=== PATIENT | female | born 1975 | race Caucasian/White ===

== ENCOUNTER 2017-07-25 12:20 | Outpatient (CLI) | payer MEDICAID, SELFPAY | END 2017-07-25 12:21 | disposition home or self-care (01) | LOC: ULT 12:20 | PROVIDERS: ATTEND Nurse Practitioner Family | DX: Z53.9 Procedure and treatment not carried out, unspecified reason (principal); N64.4 Mastodynia ==

== ENCOUNTER 2017-09-11 08:00 | Outpatient (CLI) | payer MEDICAID | END 2017-09-11 08:01 | disposition home or self-care (01) | LOC: BICMAMMO 08:00 | PROVIDERS: ATTEND Nurse Practitioner Family | DX: Z12.31 Encounter for screening mammogram for malignant neoplasm of breast (principal) | CPT/HCPCS: 77066; G0279 ==

== ENCOUNTER 2018-07-03 13:48 | Emergency (ER) | payer MEDICAID, SELFPAY ==
[~2018-07-03 13:48] MED LIST: ISOVUE-370 76%-LOCM 1 ML ONE
[2018-07-03] MEDS ORDERED: Ondansetron PF 4 MG/2 ML Vial ONE (14:38)
[2018-07-03] MEDS ORDERED: Morphine 4 MG/ML VIAL ONE ×2 (14:59→16:41)
[2018-07-03 15:04] LABS: #Basophils 0.1 thou/uL (0.0-0.2); #Eosinphils 0.1 thou/uL (0.0-0.7); #Lymphocytes 1.8 thou/uL (1.20-3.40); #Monocytes 0.5 thou/uL (0.11-0.59); #Neutrophils 8.3 thou/uL (1.40-6.50); %Basophils 0.5 % (0.0-1.0); %Eosinophils 0.7 % (0.0-10.0); %Lymphocytes 16.8 % (21.0-51.0); %Monocytes 4.9 % (0.0-10.0); %Neutrophils 77.1 % (42.0-75.0); Hemoglobin 14.8 g/dL (12.0-16.0); Mean Corpuscular HGB CONC 32.6 g/dL (32.0-36.0); Mean Corpuscular Hemoglobin 30.7 pg (27.0-31.0); Mean Corpuscular Volume 94.3 fL (78.0-98.0); Mean Platelet Volume 8.2 fL (7.4-10.4); Platelet Count 222 thou/uL (130-400); RBC Distribution Width 11.8 % (11.5-14.5); Red Blood Cell (RBC) Count 4.81 mill/uL (4.20-5.40); White Blood Cell (WBC) Count 10.8 thou/uL (4.8-10.8)
[2018-07-03 15:24] LABS: ALT (SGPT) 25 U/L (8-55); AST (SGOT) 24 U/L (5-34); Albumin 3.8 g/dL (3.5-5.0); Alkaline Phosphatase 81 U/L (40-150); Anion Gap 10 mmol/L (10-20); BUN (Urea Nitrogen) 9 mg/dL (7.0-18.7); Bilirubin, Total 0.6 mg/dL (0.2-1.2); Calc. Creatinine Clearance 0 mL/min (70-130); Carbon Dioxide 22 mmol/L (22-29); Chloride 103 mmol/L (98-107); Estimated GFR-MDRD 86; Globulin 3.9 g/dL (2.4-3.5); Glucose 103 mg/dL (70-105); Lipase 21 U/L (8-78); Potassium 4.1 mmol/L (3.5-5.1); Protein, Total 7.7 g/dL (6.0-8.3); Sodium 131 mmol/L (136-145)
[2018-07-03 15:25] LABS: Bilirubin Negative (Negative); Blood, Urine Negative (Negative); Clarity CLEAR (Clear); Glucose, Urine (Dipstick) Negative (Negative); Leukocyte Negative (Negative); Nitrite Negative (Negative); Protein, Urine (Dipstick) Negative (Neg-Trace); Specific Gravity, Urine 1.009 (1.002-1.036); Urobilinogen 0.2 mg/dL (0.2-1.0); pH, Urine 6.5 (5.0-9.0)
[2018-07-03] MEDS ORDERED: Ketorolac Tromethamine 30 MG/ML VIAL ONE (16:20)
--- NOTE | 2018-07-03 16:31 | CT ---
ABDOMEN AND PELVIC CT SCAN WITHOUT IV CONTRAST: Date: 07/03/18 HISTORY: 43-year-old female with history of body aches, kidneys hurt, throwing up blood clots this morning aft er waking up. FINDINGS: The lung bases demonstrate some linear parenchymal changes in both lower lobes, evidence for mild sub segmental atelectasis versus chronic change. The liver, gallbladder, pancreas, spleen, and adrenal gl ands are unremarkable. No evidence for renal calculus or acute obstruction. Normal appearing appen alexandro. In the right adnexa, there is an approximately 3.4 x 5.0 cm diameter what appears to be a septated cy st or cystic mass. The uterus appears unremarkable. No free intraperitoneal fluid. There is scattered solid fecal material in the colon, but no evidence for an abnormally distended fecal-filled rectum. IMPRESSION: No significant acute process in the abdomen or pelvis. Right ovarian/adnexal septated appearing cyst or cystic mass. Nonemergent follow-up pelvic ultrasound might be considered for further assessment. L inear stranding in both lung bases, possibly subsegmental atelectasis or chronic change. POS: [facility]
[2018-07-03 17:17] LABS: BHCG - Serum Negative (NEGATIVE); Pregs Control Background? CLEAR/WHITE (CLR/WHITE); Pregs Control Bar Appear? YES (CONTROL BAR)
--- NOTE | 2018-07-03 19:38 | ULT ---
PELVIC ULTRASOUND: 07/03/18 COMPARISON: CT abdomen/pelvis 07/03/18. HISTORY: Cystic mass. TECHNIQUE: Multiplanar moreland scale and color doppler images were obtained in a transabdominal and transvaginal pe lvic ultrasound. Spectral analysis of the doppler waveforms of the ovaries were performed. FINDINGS: The uterus is normal in size and appearance without focal abnormality. Endometrial stripe is upper li mits of normal in thickness measuring 11 mm. A Nabothian cyst is seen in the cervix. A small amount of free fluid is seen in the pelvis. Both ovaries demonstrate normal internal flow. Cy st/follicles are seen in both ovaries. The largest is seen on the right measuring 3.4 cm in size. The abnormality on CT may have represented two separate cysts/follicles in the right ovary. IMPRESSION: No significant pelvic abnormality. The abnormality on CT are likely physiologic follicles. POS: [facility]
== END 2018-07-03 18:33 | disposition home or self-care (01) ==
LOC: ERS 13:48
DX: N83.201 Unspecified ovarian cyst, right side (principal); B34.9 Viral infection, unspecified; E78.5 Hyperlipidemia, unspecified; F31.9 Bipolar disorder, unspecified; F41.9 Anxiety disorder, unspecified; F43.10 Post-traumatic stress disorder, unspecified; F17.210 Nicotine dependence, cigarettes, uncomplicated; Z79.899 Other long term (current) drug therapy; Z71.6 Tobacco abuse counseling
CPT/HCPCS: 74177; 76856; 80053; 81003; 82274; 83690; 84703; 85025; 87804; 96361; 96374; 96375; 96376; 99406; J1885; J2270; J2405

== ENCOUNTER 2018-10-15 11:34 | Emergency (ER) | payer SELFPAY ==
[2018-10-15 12:17] LABS: #Basophils 0.1 thou/uL (0.0-0.2); #Eosinphils 0.1 thou/uL (0.0-0.7); #Lymphocytes 2.4 thou/uL (1.20-3.40); #Monocytes 0.5 thou/uL (0.11-0.59); #Neutrophils 4.6 thou/uL (1.40-6.50); %Basophils 0.8 % (0.0-1.0); %Eosinophils 1.4 % (0.0-10.0); %Lymphocytes 31.1 % (21.0-51.0); %Monocytes 6.9 % (0.0-10.0); %Neutrophils 59.8 % (42.0-75.0); Hemoglobin 15.4 g/dL (12.0-16.0); Mean Corpuscular Hemoglobin 31.3 pg (27.0-31.0); Mean Corpuscular Volume 94.8 fL (78.0-98.0); Mean Platelet Volume 8.9 fL (7.4-10.4); Platelet Count 225 thou/uL (130-400); RBC Distribution Width 12.3 % (11.5-14.5); White Blood Cell (WBC) Count 7.7 thou/uL (4.8-10.8)
[2018-10-15 12:53] LABS: Bilirubin Small (Negative); Blood, Urine Negative (Negative); Clarity CLOUDY (Clear); Glucose, Urine (Dipstick) Negative (Negative); Leukocyte Trace (Negative); Nitrite Negative (Negative); Protein, Urine (Dipstick) 30 mg/dL (Neg-Trace); Specific Gravity, Urine 1.023 (1.002-1.036); pH, Urine 7.5 (5.0-9.0)
[2018-10-15 12:53] LABS: ALT (SGPT) 14 U/L (8-55); AST (SGOT) 13 U/L (5-34); Albumin 4.1 g/dL (3.5-5.0); Alkaline Phosphatase 86 U/L (40-150); Anion Gap 12 mmol/L (10-20); BUN (Urea Nitrogen) 11 mg/dL (7.0-18.7); Bilirubin, Total 0.6 mg/dL (0.2-1.2); Calc. Creatinine Clearance 0 mL/min (70-130); Calcium 10.3 mg/dL (7.8-10.44); Carbon Dioxide 28 mmol/L (22-29); Chloride 104 mmol/L (98-107); Estimated GFR-MDRD 75; Globulin 3.9 g/dL (2.4-3.5); Glucose 67 mg/dL (70-105); Lipase 23 U/L (8-78); Potassium 3.7 mmol/L (3.5-5.1); Sodium 140 mmol/L (136-145)
[2018-10-15 12:55] LABS: Hyaline Casts/LPF 4-6 HYALINE CAST LPF (0-3 Hyaline); Pathc Cast-AUWi Flag 0.58 (0-2.49); WBC/HPF 0-3 HPF (0-3)
[2018-10-15 13:24] LABS: RBC/HPF 0-3 HPF (0-3)
[2018-10-15 13:25] LABS: Bacteria/HPF Rare-Few HPF (None Seen); Crystals/HPF 1+ AMORPH PHOS HPF (Negative)
[2018-10-15] MEDS ORDERED: Ondansetron ODT 4 MG TAB ONE (15:14)
== END 2018-10-15 15:17 | disposition home or self-care (01) ==
LOC: ERS 11:34
DX: R11.2 Nausea with vomiting, unspecified (principal); E78.5 Hyperlipidemia, unspecified; F41.9 Anxiety disorder, unspecified; F31.9 Bipolar disorder, unspecified; F43.10 Post-traumatic stress disorder, unspecified; F17.210 Nicotine dependence, cigarettes, uncomplicated; Z79.899 Other long term (current) drug therapy
CPT/HCPCS: 36416; 80053; 81003; 81015; 83690; 85025; 86677; 99284; Q0162

== ENCOUNTER 2019-05-23 23:01 | Inpatient (IN) | payer SELFPAY ==
[2019-05-23] MEDS ORDERED: Succinylcholine Chloride 20 MG/ML 10 ml SYRINGE FS ONE (23:05)
[2019-05-23] MEDS ORDERED: Midazolam HCl 5 mg/ml Vial ONE (23:20)
[2019-05-23 23:27] LABS: #Basophils 0.1 thou/uL (0.0-0.2); #Lymphocytes 1.5 thou/uL (1.20-3.40); #Monocytes 0.5 thou/uL (0.11-0.59); #Neutrophils 7.4 thou/uL (1.40-6.50); %Basophils 0.6 % (0.0-1.0); %Eosinophils 0.1 % (0.0-10.0); %Lymphocytes 16.3 % (21.0-51.0); %Neutrophils 78.1 % (42.0-75.0); Hemoglobin 15.1 g/dL (12.0-16.0); Mean Corpuscular HGB CONC 33.8 g/dL (32.0-36.0); Mean Corpuscular Volume 94.6 fL (78.0-98.0); Mean Platelet Volume 8.7 fL (7.4-10.4); Platelet Count 202 thou/uL (130-400); RBC Distribution Width 12.6 % (11.5-14.5); Red Blood Cell (RBC) Count 4.73 mill/uL (4.20-5.40); White Blood Cell (WBC) Count 9.5 thou/uL (4.8-10.8)
[2019-05-23] MEDS ORDERED: fentaNYL Citrate/PF 2,000 MCG in Sodium Chloride 0.9% 60 ML IV SCH (23:27)
[2019-05-23 23:28] LABS: Actual Bicarbonate (HCO3a) 19.5 mEq/L (22-28); Analyzer IN Cardio ER; Base Excess (BEa) -6.9 mEq/L (-2.0 to +3.0); CO2 Tension 42.1 mmHg (35.0-45.0); Calcium, Ionized 1.19 mmol/L (1.12-1.30); Carboxyhemoglobin (COHb) 2.8 gm% (0.0-3.0); Hemoglobin (Hb) 14.7 g/dL (12.0-16.0); O2 Tension (PaO2) 387.4 mmHg (80.0-100.0); Potassium - ABG Lab 4.19 mmol/L (3.70-5.30); pH, Arterial 7.28 (7.35-7.45)
[2019-05-23 23:30] LABS: BHCG - Serum Negative (NEGATIVE); Pregs Control Background? CLEAR/WHITE (CLR/WHITE); Pregs Control Bar Appear? YES (CONTROL BAR)
--- NOTE | 2019-05-23 23:31 | RAD ---
EXAM: Single view of the chest HISTORY: Drug overdose COMPARISON: 09/06/2017 FINDINGS: Single view of the chest shows a normal sized cardiomediastinal silhouette. An endotrachea l tube is seen with its tip at the lower border of the clavicles. An NG tube is seen in the stomach. Atelectasis is seen in the mid left lung extending from the hilum. There is no evidence of consolidation, mass, or pleural effusion. The bones are unremarkable. IMPRESSION: Appropriate position of lines and tubes
[2019-05-23 23:33] LABS: Bilirubin Negative (Negative); Blood, Urine Negative (Negative); Clarity Turbid (Clear); Glucose, Urine (Dipstick) Normal (Negative); Leukocyte Negative Leu/uL (Negative); Mucous/LPF 4+ LPF (<2+); Nitrite Negative (Negative); Protein, Urine (Dipstick) 50 mg/dL (Neg-Trace); RBC/HPF 0-3 HPF (0-3); Squamous Epithelial 0-3 HPF (0-3); Urobilinogen Normal mg/dL (Less than 2); WBC/HPF 0-3 HPF (0-3)
[2019-05-23 23:35] LABS: Bacteria/HPF 1+ HPF (None Seen)
[2019-05-23 23:36] LABS: Calcium Oxalate Crystals Rare HPF (None Seen)
[2019-05-23 23:36] LABS: ALV-art Gradient 272.975 (0-20); Puncture Site RRA
[2019-05-23 23:38] LABS: Amphetamine Not Detected (NotDetected); Barbiturates Screen Not Detected (NotDetected); Benzodiazepine Screen Detected (NotDetected); Cocaine Metabolite Screen Detected (NotDetected); Medtox Control Line Valid? VALID (VALID); Medtox Reader # READER 4; Methadone Not Detected (NotDetected); Methamphetamine Detected (NotDetected); Opiate Screen Not Detected (NotDetected); Oxycodone Screen Not Detected (NotDetected); Phencyclidine (PCP) Not Detected (NotDetected); THC/Cannabinoid Screen Detected (NotDetected); Tricyclic Screen Not Detected (NotDetected)
[2019-05-23 23:51] LABS: Acetaminophen Less than 6.0 mcg/mL (10.0-30.0); Alcohol Less than 10 mg/dL (Less than 10); Salicylate Less than 8.0 mg/dL (15.0-30.0)
[2019-05-24 00:06] LABS: ALT (SGPT) 22 U/L (8-55); AST (SGOT) 19 U/L (5-34); Albumin 4.4 g/dL (3.5-5.0); Alkaline Phosphatase 80 U/L (40-150); Anion Gap 15 mmol/L (10-20); BUN (Urea Nitrogen) 14 mg/dL (7.0-18.7); Bilirubin, Total 0.4 mg/dL (0.2-1.2); Calc. Creatinine Clearance 0 mL/min (70-130); Calcium 9.5 mg/dL (7.8-10.44); Carbon Dioxide 22 mmol/L (22-29); Chloride 107 mmol/L (98-107); Estimated GFR-MDRD 78; Globulin 3.7 g/dL (2.4-3.5); Glucose 114 mg/dL (70-105); Potassium 4.1 mmol/L (3.5-5.1); Protein, Total 8.1 g/dL (6.0-8.3); Sodium 140 mmol/L (136-145)
[2019-05-24] MEDS ORDERED: Propofol 1,000 MG/100 ML VIAL IV ONE (01:44)
[2019-05-24 02:11] VITALS: BMI 38.7
[2019-05-24] MEDS ORDERED: Ondansetron ODT 4 MG TAB PO PRN (02:12)
[2019-05-24] MEDS ORDERED: Ondansetron PF 4 MG/2 ML Vial IVP PRN (02:12)
[2019-05-24] MEDS ORDERED: Acetaminophen 650 MG Suppository PR PRN (02:12)
[2019-05-24] MEDS ORDERED: Ventilator Sedation Protocol 1 EACH FS SCH (02:14)
[2019-05-24] MEDS ORDERED: Morphine 2 MG/ML SYRINGE SLOW IVP PRN (02:16)
[2019-05-24] MEDS ORDERED: Fentanyl BOLUS 250 ML IVPB PRN (02:16)
[2019-05-24] MEDS ORDERED: Propofol 1,000 MG/100 ML VIAL IV PRN (02:16)
[2019-05-24] MEDS ORDERED: DISCONTINUE PREVIOUS NARCOTIC PAIN MEDICATIONS AND BENZODIAZEPINES FS SCH (02:16)
[2019-05-24] MEDS ORDERED: Propofol BOLUS 1,000 MG/100 ML VIAL IV PRN (02:16)
[2019-05-24] MEDS ORDERED: fentaNYL Citrate/PF 2,000 MCG in Sodium Chloride 0.9% 60 ML IV SCH (02:16)
[2019-05-24] MEDS ORDERED: Lorazepam 2 MG/ML VIAL SLOW IVP PRN (02:16)
[2019-05-24 04:27] LABS: #Lymphocytes 2.5 thou/uL (1.20-3.40); #Monocytes 0.3 thou/uL (0.11-0.59); #Neutrophils 4.8 thou/uL (1.40-6.50); %Basophils 0.5 % (0.0-1.0); %Eosinophils 0.1 % (0.0-10.0); %Lymphocytes 32.9 % (21.0-51.0); %Monocytes 4.3 % (0.0-10.0); %Neutrophils 62.2 % (42.0-75.0); Hemoglobin 13.7 g/dL (12.0-16.0); Mean Corpuscular HGB CONC 33.9 g/dL (32.0-36.0); Mean Corpuscular Hemoglobin 32.1 pg (27.0-31.0); Mean Corpuscular Volume 94.5 fL (78.0-98.0); Mean Platelet Volume 8.6 fL (7.4-10.4); Platelet Count 195 thou/uL (130-400); RBC Distribution Width 12.5 % (11.5-14.5); Red Blood Cell (RBC) Count 4.26 mill/uL (4.20-5.40); White Blood Cell (WBC) Count 7.6 thou/uL (4.8-10.8)
[2019-05-24 04:43] LABS: Lactic Acid 1.6 mmol/L (0.5-2.2)
[2019-05-24 04:45] LABS: Anion Gap 13 mmol/L (10-20); BUN (Urea Nitrogen) 12 mg/dL (7.0-18.7); Calc. Creatinine Clearance 179 mL/min (70-130); Calcium 8.9 mg/dL (7.8-10.44); Carbon Dioxide 19 mmol/L (22-29); Chloride 111 mmol/L (98-107); Estimated GFR-MDRD Greater than 90; Glucose 100 mg/dL (70-105); Potassium 3.3 mmol/L (3.5-5.1); Sodium 140 mmol/L (136-145)
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
--- NOTE | 2019-05-24 07:54 | CT ---
PRELIMINARY REPORT/[facility]/EMERGENCY AFTER HOURS PROCEDURE: PROCEDURE INFORMATION: Exam: CT Head Without Contrast Exam date and time: 05/24/2019 12:06 AM Clinical history: 44 years old, female; Altered mental status/memory loss; Patient HX: Friends report to EMS that she started shaking and went unresponsive. TECHNIQUE: Imaging protocol: Computed tomography of the head without contrast. COMPARISON: No relevant prior studies available. FINDINGS: Brain: No acute findings. No hemorrhage. No significant white matter disease. No edema. Ventricles: No acute findings. No ventriculomegaly. Bones/joints: No acute fracture. Sinuses: Mild ethmoid sinus mucosal thickening. Adenoid hypertrophy. Mastoid air cells: No acute findings. No mastoid effusion. Soft tissues: No acute findings. IMPRESSION: No acute intracranial abnormality. Thank you for allowing us to participate in the care of your patient. Dictated and Authenticated by: Yusef Pal MD 05/24/2019 12:25 AM Central Time ([place] & [place]) FINAL REPORT EMERGENCY AFTER HOURS CT HEAD: Date: 05/23/19 IMPRESSION: No acute abnormality. I am in agreement with the preliminary report issued by Brian. POS: [facility]
[2019-05-24] MEDS ORDERED: DC Sedation Protocol FS ONE (08:29)
[2019-05-24] MEDS ORDERED: Potassium Chloride 40 MEQ in Sodium Chloride 0.9% 250 ML 250 ML IVPB SCH (08:45)
[2019-05-24] MEDS ORDERED: Magnesium Sulfate 4 GM in Sodium Chloride 0.9% 250 ML 250 ML IVPB SCH (08:45)
[2019-05-24] MEDS: Dextrose 5 %-0.45 % NaCl 1,000 ML IV SCH (09:39)
[2019-05-24] MEDS: Enoxaparin Sodium 40 MG/0.4 ML SYRINGE SC SCH (09:40)
--- NOTE | 2019-05-24 12:41 | PDOC.HOSPP ---
- Subjective Encounter Date: 05/24/19 Encounter Time: 12:39 Subjective: 44 y/o female with drug abuse history admitted with unresponsiveness requiring intubation for airway protection. Extubated earlier today. Has no memory of events leading to hospitalization. - Objective Vital Signs & Weight: Vital Signs (12 hours) Temp Pulse Resp BP Pulse Ox 05/24/19 12:00 98.0 F 97 05/24/19 08:32 89 14 99 05/24/19 08:00 98.7 F 18 95 05/24/19 06:36 56 L 106/68 05/24/19 06:00 18 05/24/19 04:00 97.6 F 18 05/24/19 02:00 97.6 F 18 05/24/19 01:40 97.8 F 58 L 16 99 Weight Weight 211 lb 6.773 oz Most Recent Monitor Data Heart Rate from ECG 76 NIBP 92/50 NIBP BP-Mean 64 Respiration from ECG 20 SpO2 97 I&O: 05/23/19 05/24/19 05/25/19 06:59 06:59 06:59 Intake Total 15.7 6 Output Total 185 100 Balance -169.3 -94 Result Diagrams: 05/25/19 05:56 05/25/19 05:56 Additional Labs: Accuchecks 05/23/19 23:59 POC Glucose 108 Hospitalist ROS - Medication Medications: Active Medications Generic Name Dose Route Start Last Admin Trade Name Freq PRN Reason Stop Dose Admin Enoxaparin Sodium 40 mg 05/24/19 09:00 05/24/19 09:40 Lovenox SC 40 mg 0900 LA NENA Administration Dextrose/Sodium Chloride 1,000 mls @ 75 mls/hr 05/24/19 08:45 05/24/19 09:39 D5 1/2 Ns IV 1,000 mls .[id number] LA NENA Administration - Exam General Appearance: awake alert Eye: anicteric sclera ENT: normocephalic atraumatic, moist mucosa Neck: supple, symmetric Heart: RRR Respiratory: no wheezes, no rales, no ronchi Respiratory - other findings: fair air entry with some transmitted sound Gastrointestinal: soft, non-distended, normal bowel sounds Extremities: no cyanosis, no edema Neurological: cranial nerve grossly intact, no focal deficits Psychiatric: A&O x 3 Hosp A/P (1) Toxic metabolic encephalopathy Code(s): G92 - TOXIC ENCEPHALOPATHY Status: Acute (2) Polysubstance abuse Code(s): F19.10 - OTHER PSYCHOACTIVE SUBSTANCE ABUSE, UNCOMPLICATED Status: Acute (3) Hypomagnesemia Code(s): E83.42 - HYPOMAGNESEMIA Status: Acute (4) Hypokalemia Code(s): E87.6 - HYPOKALEMIA Status: Acute - Plan Continue care.
[2019-05-24] MEDS: Acetaminophen 325 MG TAB PO PRN ×2 (14:20→19:24)
--- NOTE | 2019-05-24 14:35 | CON ---
DATE OF CONSULTATION: HISTORY OF PRESENT ILLNESS: Saba Talley is a 44-year-old female, intubated on the vent, sedated with fentanyl. Her who was also sick, seated at the bedside, unable to give any significant history, extremely poor historian. He states that her apparently sees someone at [facility] for unknown mental issues. She is unemployed. Smokes 2 packs a day. Apparently, takes several different medications including IV cocaine, smoking cocaine and apparently meth. Comes into the ER, unresponsive, shaking. She was given Narcan. She eventually intubated in the ER. She has apparently had multiple closed head injuries in the past, very unusual history, some kind of post-traumatic injury. She is presently intubated on the vent. PAST MEDICAL HISTORY: Outlined includes restless legs, hyperlipidemia. She has apparently bipolar, PTSD. Drug rehab, many times. PAST SURGICAL HISTORY: Previous surgeries, none. ALLERGIES: CODEINE. MEDICATIONS: At home includes; 1. Prozac 40. 2. Ropinirole 0.5. 3. Ativan. 4. Zofran. REVIEW OF SYSTEMS: Otherwise, unobtainable. PHYSICAL EXAMINATION: VITAL SIGNS: Pulse is 90, blood pressure 100/67, saturations 100%, and respirations 18. CHEST: Decreased breath sounds. No wheezing. CARDIAC: Normal S1 and S2. No gallops. ABDOMEN: No masses. LABORATORY DATA: White count 7000, H and H of 13 and 40, and platelet count normal. PO2 is 387, pCO2 40%, pH 7.28. Lytes are normal. Her drug screen is positive for methamphetamine, benzodiazepine, cocaine, and cannabinoids. Alcohol level is not detected. IMAGING DATA: Chest x-ray shows nonspecific interstitial scarring. ASSESSMENT: 1. Metabolic encephalopathy, mostly substance and drug abuse, unknown. 2. Attention deficit hyperactivity disorder. 3. Post-traumatic stress disorder. 4. Multiple substance abuse. 5. Abnormal chest x-ray. PLAN: Hold sedation. Hopefully, we can try and wean and extubate in the next several hours. This is a 45-minute of critical care time. We will follow. Job ID: [id number]
[2019-05-24] MEDS ORDERED: Lorazepam 1 MG TAB PO SCH (17:15)
[2019-05-24] MEDS: rOPINIRole HCl 2 MG TAB PO SCH (20:01)
[2019-05-25] MEDS: Acetaminophen 325 MG TAB PO PRN ×2 (00:57→07:44)
[2019-05-25] MEDS: Dextrose 5 %-0.45 % NaCl 1,000 ML IV SCH (02:29)
[2019-05-25 06:06] LABS: #Eosinphils 0.2 thou/uL (0.0-0.7); #Lymphocytes 2.7 thou/uL (1.20-3.40); #Monocytes 0.4 thou/uL (0.11-0.59); #Neutrophils 2.7 thou/uL (1.40-6.50); %Basophils 0.8 % (0.0-1.0); %Eosinophils 2.5 % (0.0-10.0); %Lymphocytes 45.5 % (21.0-51.0); %Monocytes 6.6 % (0.0-10.0); %Neutrophils 44.5 % (42.0-75.0); Hemoglobin 12.1 g/dL (12.0-16.0); Mean Corpuscular HGB CONC 33.4 g/dL (32.0-36.0); Mean Corpuscular Hemoglobin 31.9 pg (27.0-31.0); Mean Corpuscular Volume 95.4 fL (78.0-98.0); Mean Platelet Volume 8.4 fL (7.4-10.4); Platelet Count 154 thou/uL (130-400); RBC Distribution Width 12.3 % (11.5-14.5)
[2019-05-25 06:34] LABS: ALT (SGPT) 16 U/L (8-55); AST (SGOT) 14 U/L (5-34); Albumin 3.4 g/dL (3.5-5.0); Alkaline Phosphatase 65 U/L (40-150); Anion Gap 7 mmol/L (10-20); BUN (Urea Nitrogen) 13 mg/dL (7.0-18.7); Bilirubin, Total 0.6 mg/dL (0.2-1.2); Calc. Creatinine Clearance 173 mL/min (70-130); Calcium 8.1 mg/dL (7.8-10.44); Carbon Dioxide 25 mmol/L (22-29); Chloride 106 mmol/L (98-107); Estimated GFR-MDRD Greater than 90; Globulin 2.8 g/dL (2.4-3.5); Glucose 83 mg/dL (70-105); Magnesium 1.9 mg/dL (1.6-2.6); Potassium 3.8 mmol/L (3.5-5.1); Protein, Total 6.2 g/dL (6.0-8.3); Sodium 134 mmol/L (136-145)
[2019-05-25] MEDS: Enoxaparin Sodium 40 MG/0.4 ML SYRINGE SC SCH (07:44)
[2019-05-25] MEDS: Lorazepam 1 MG TAB PO SCH (07:44)
[2019-05-25] MEDS: FLUoxetine HCl 20 MG CAP PO SCH (07:44)
--- NOTE | 2019-05-25 10:11 | PRG ---
DATE OF SERVICE: SUBJECTIVE: This morning, she is awake, alert, responsive, status post OD_ overdose, complaining of vague abdominal pain. She is short of breath, but appears to be in no distress. OBJECTIVE: VITAL SIGNS: Pulse 66, blood pressure 117/76, sat 96%_, respiratory rate 23. CHEST: No wheezing or crackles. CARDIAC: Normal S1 and S2. ABDOMEN: No masses. LABORATORY DATA: Electrolytes are normal. CBC unremarkable. IMPRESSION: Status post overdose, respiratory failure, tobacco abuse. PLAN: 1. She can be transferred out of the ICU. She needs a sitter. 2. We will follow. Job ID: [id number] MTDD
--- NOTE | 2019-05-25 13:37 | EKG ---
Test Reason : ER INDICATION Blood Pressure : / mmHG Vent. Rate : 077 BPM Atrial Rate : 077 BPM P-R Int : 166 ms QRS Dur : 092 ms QT Int : 450 ms P-R-T Axes : 052 074 040 degrees QTc Int : 509 ms Normal sinus rhythm Possible Left atrial enlargement T wave abnormality, consider anterior ischemia Prolonged QT Abnormal ECG Confirmed by DIANE MORFIN ([id number]), manuscript editor KOKI HEADLEY ([id number]) on 05/25/2019 1:37:40 PM Referred By: Confirmed By:DIANE MORFIN
--- NOTE | 2019-05-25 16:40 | PDOC.HOSPP ---
- Subjective Encounter Date: 05/25/19 Encounter Time: 11:39 Subjective: 44 y/o female with drug abuse history admitted with unresponsiveness requiring intubation for airway protection. Extubated and doing well. Complaining of abdominal pain. Doesnt want to take acetaminophen. Reported history of peptic ulcer and also wants to take alleve which she takes at home. - Objective Vital Signs & Weight: Vital Signs (12 hours) Temp Pulse Resp BP Pulse Ox 05/25/19 15:05 94 L 05/25/19 14:50 98.2 F 77 18 110/71 94 L 05/25/19 09:50 57 L 16 100 05/25/19 08:00 98.0 F 94 L Weight Weight 210 lb 12.191 oz Most Recent Monitor Data Heart Rate from ECG 73 NIBP 118/79 NIBP BP-Mean 92 Respiration from ECG 17 SpO2 89 I&O: 05/24/19 05/25/19 05/26/19 06:59 06:59 06:59 Intake Total 15.7 2977 571 Output Total 185 750 710 Balance -169.3 2227 -139 Result Diagrams: 05/25/19 05:56 05/25/19 05:56 Hospitalist ROS - Medication Medications: Active Medications Generic Name Dose Route Start Last Admin Trade Name Freq PRN Reason Stop Dose Admin Acetaminophen 650 mg 05/24/19 02:12 05/25/19 00:57 Tylenol PO 650 mg Q4H PRN Administration Headache/Fever/Mild Pain (1-3) Albuterol/Ipratropium 3 ml 05/25/19 12:30 05/25/19 13:20 Duoneb NEB Not Given TID-RT LA NENA Enoxaparin Sodium 40 mg 05/24/19 09:00 05/25/19 07:44 Lovenox SC 40 mg 0900 LA NENA Administration Fluoxetine HCl 40 mg 05/25/19 09:00 05/25/19 07:44 Prozac PO 40 mg DAILY LA NENA Administration Lorazepam 1 mg 05/25/19 09:00 05/25/19 07:44 Ativan PO 1 mg QAM LA NENA Administration Ondansetron HCl 4 mg 05/24/19 02:12 05/24/19 14:29 Zofran IVP 4 mg Q6H PRN Administration Nausea/Vomiting Ropinirole HCl 2 mg 05/24/19 21:00 05/24/19 20:01 Requip PO 2 mg QPM LA NENA Administration - Exam General Appearance: awake alert Eye: anicteric sclera ENT: normocephalic atraumatic, moist mucosa Neck: supple, symmetric Heart: RRR Respiratory: no wheezes, no ronchi, normal chest expansion Gastrointestinal: soft, non-distended, normal bowel sounds, tender to palpation Extremities: no cyanosis, no edema Neurological: cranial nerve grossly intact Psychiatric: A&O x 3 Hosp A/P (1) Toxic metabolic encephalopathy Code(s): G92 - TOXIC ENCEPHALOPATHY Status: Acute (2) Polysubstance abuse Code(s): F19.10 - OTHER PSYCHOACTIVE SUBSTANCE ABUSE, UNCOMPLICATED Status: Acute (3) Hypomagnesemia Code(s): E83.42 - HYPOMAGNESEMIA Status: Acute (4) Hypokalemia Code(s): E87.6 - HYPOKALEMIA Status: Acute (5) COPD (chronic obstructive pulmonary disease) Status: Acute (6) Tobacco abuse disorder Code(s): Z72.0 - TOBACCO USE Status: Acute (7) Depression with anxiety Code(s): F41.8 - OTHER SPECIFIED ANXIETY DISORDERS Status: Acute (8) Hyponatremia Code(s): E87.1 - HYPO-OSMOLALITY AND HYPONATREMIA Status: Acute - Plan Stop hypotonic solution. Restart duonebs and PPI Acetaminophen and lidocaine patch for analgesic Restart requip
[2019-05-25] MEDS ORDERED: FLUoxetine HCl 20 MG CAP PO SCH (16:45)
[2019-05-25] MEDS: Lidocaine 5% Patch TD SCH (18:04)
[2019-05-25] MEDS: rOPINIRole HCl 2 MG TAB PO SCH (20:25)
[2019-05-25] MEDS ORDERED: rOPINIRole HCl 2 MG TAB PO SCH (21:00)
[2019-05-26 05:41] LABS: Anion Gap 7 mmol/L (10-20); BUN (Urea Nitrogen) 13 mg/dL (7.0-18.7); Calc. Creatinine Clearance 158 mL/min (70-130); Calcium 8.4 mg/dL (7.8-10.44); Carbon Dioxide 26 mmol/L (22-29); Chloride 106 mmol/L (98-107); Estimated GFR-MDRD Greater than 90; Glucose 84 mg/dL (70-105); Magnesium 1.9 mg/dL (1.6-2.6); Potassium 3.8 mmol/L (3.5-5.1); Sodium 135 mmol/L (136-145)
[2019-05-26] MEDS ORDERED: Lidocaine Patch Removal 1 EACH TOP SCH (06:00)
[2019-05-26] MEDS: FLUoxetine HCl 20 MG CAP PO SCH (08:07)
[2019-05-26] MEDS: Lorazepam 1 MG TAB PO SCH (08:07)
[2019-05-26] MEDS: Enoxaparin Sodium 40 MG/0.4 ML SYRINGE SC SCH (08:07)
[2019-05-26 08:28] VITALS: BP 114/74; TEMP 98.2
[2019-05-26] MEDS ORDERED: Non-Formulary Item 1 EACH (Fluoxetine Hcl [Fluoxetine Hcl] 40 MG) PO SCH (09:00)
[2019-05-26] MEDS ORDERED: Nicotine 21 MG PATCH TD SCH (09:00)
[2019-05-26] MEDS: Lidocaine 5% Patch TD SCH (09:58)
--- NOTE | 2019-05-26 19:25 | PDOC.EVN ---
Event Note - Event Note Event Note: Discharged. Discharge summary dictated.
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
== END 2019-05-26 15:05 | disposition home or self-care (01) | DRG 917 ==
LOC: ERS 23:01 → CCU 05-24 00:15 → T4-B 05-25 14:17
PROVIDERS: ADMIT Hospitalist; ATTEND Hospitalist
PROC: 5A1935Z Respiratory Ventilation, Less than 24 Consecutive Hours (ICD-10-PCS; principal; 2019-05-24)
DX: T43.621A Poisoning by amphetamines, accidental (unintentional), initial encounter (principal); J96.00 Acute respiratory failure, unspecified whether with hypoxia or hypercapnia; G92 Toxic encephalopathy; E87.1 Hypo-osmolality and hyponatremia; T42.4X1A Poisoning by benzodiazepines, accidental (unintentional), initial encounter; T40.7X1A Poisoning by cannabis (derivatives), accidental (unintentional), initial encounter; T40.5X1A Poisoning by cocaine, accidental (unintentional), initial encounter; E78.5 Hyperlipidemia, unspecified; G25.81 Restless legs syndrome; F41.9 Anxiety disorder, unspecified; F41.8 Other specified anxiety disorders; J44.9 Chronic obstructive pulmonary disease, unspecified; R10.9 Unspecified abdominal pain; R07.9 Chest pain, unspecified; F31.9 Bipolar disorder, unspecified; F43.10 Post-traumatic stress disorder, unspecified; F17.210 Nicotine dependence, cigarettes, uncomplicated; E83.42 Hypomagnesemia; E87.6 Hypokalemia; Z88.5 Allergy status to narcotic agent; F90.9 Attention-deficit hyperactivity disorder, unspecified type
CPT/HCPCS: 31500; 36415; 36416; 51702; 70450; 71045; 80048; 80053; 80306; 80307; 81003; 81015; 82550; 82805; 83605; 83735; 84703; 85025; 93005; 94002; 94640; 94760; 96361; 96365; 96375; 99292; J1650; J2250; J2405; J2704; J3010; J3475; J3480; J3490; J7050; J7620

== ENCOUNTER 2021-03-06 13:41 | Emergency (ER) | payer SELFPAY ==
[~2021-03-06 13:41] MED LIST changes: -ISOVUE-370 76%-LOCM 1 ML ONE; +Iopamidol-370 76% 500 ML 1 ML ONE
[2021-03-06 14:56] LABS: #Basophils 0.1 thou/uL (0.0-0.2); #Eosinphils 0.2 thou/uL (0.0-0.7); #Lymphocytes 2.5 thou/uL (1.20-3.40); #Monocytes 0.4 thou/uL (0.11-0.59); #Neutrophils 4.6 thou/uL (1.40-6.50); %Basophils 0.9 % (0.0-1.0); %Eosinophils 2.4 % (0.0-10.0); %Lymphocytes 32.1 % (21.0-51.0); %Monocytes 5.5 % (0.0-10.0); %Neutrophils 59.1 % (42.0-75.0); Hemoglobin 14.5 g/dL (12.0-16.0); Mean Corpuscular HGB CONC 34.1 g/dL (32.0-36.0); Mean Corpuscular Hemoglobin 32.9 pg (27.0-31.0); Mean Corpuscular Volume 96.3 fL (78.0-98.0); Mean Platelet Volume 8.7 fL (7.4-10.4); Platelet Count 216 thou/uL (130-400); RBC Distribution Width 12.3 % (11.5-14.5); Red Blood Cell (RBC) Count 4.41 mill/uL (4.20-5.40); White Blood Cell (WBC) Count 7.7 thou/uL (4.8-10.8)
[2021-03-06 14:58] LABS: Bilirubin Negative (Negative); Blood, Urine Negative (Negative); Clarity Clear (Clear); Glucose, Urine (Dipstick) Normal (Negative); Ketone, Urine Negative (Negative); Leukocyte Negative Leu/uL (Negative); Nitrite Negative (Negative); Protein, Urine (Dipstick) Negative (Neg-Trace); Specific Gravity, Urine 1.023 (1.002-1.036); Urobilinogen Normal mg/dL (Less than 2); pH, Urine 6.5 (5.0-9.0)
[2021-03-06 15:08] LABS: ALT (SGPT) 30 U/L (8-55); AST (SGOT) 19 U/L (5-34); Albumin 3.7 g/dL (3.5-5.0); Alkaline Phosphatase 79 U/L (40-110); Anion Gap 13 mmol/L (10-20); BUN (Urea Nitrogen) 10 mg/dL (7.0-18.7); Bilirubin, Total 0.3 mg/dL (0.2-1.2); Calc. Creatinine Clearance 0 mL/min (70-130); Calcium 8.9 mg/dL (7.8-10.44); Carbon Dioxide 26 mmol/L (22-29); Chloride 103 mmol/L (98-107); Globulin 3.4 g/dL (2.4-3.5); Glucose 94 mg/dL (70-105); Lipase 51 U/L (8-78); Potassium 3.8 mmol/L (3.5-5.1); Protein, Total 7.1 g/dL (6.0-8.3); Sodium 138 mmol/L (136-145)
[2021-03-06] MEDS ORDERED: Morphine 4 MG/ML VIAL ONE (15:40)
[2021-03-06] MEDS ORDERED: Ketorolac Tromethamine 30 MG/ML VIAL ONE (15:40)
[2021-03-06] MEDS ORDERED: Ondansetron PF 4 MG/2 ML Vial ONE (15:40)
[2021-03-06 16:24] LABS: BHCG - Serum Negative (NEGATIVE); Pregs Control Background? CLEAR/WHITE (CLR/WHITE); Pregs Control Bar Appear? YES (CONTROL BAR)
== END 2021-03-06 17:35 | disposition home or self-care (01) ==
LOC: ERS 13:41
DX: R10.30 Lower abdominal pain, unspecified (principal); M53.3 Sacrococcygeal disorders, not elsewhere classified; R10.813 Right lower quadrant abdominal tenderness; R10.814 Left lower quadrant abdominal tenderness; E78.5 Hyperlipidemia, unspecified; E78.00 Pure hypercholesterolemia, unspecified; E28.2 Polycystic ovarian syndrome; F17.210 Nicotine dependence, cigarettes, uncomplicated; Z79.899 Other long term (current) drug therapy
CPT/HCPCS: 36415; 74177; 80053; 81003; 83690; 84703; 85025; 96374; 96375; J1885; J2270; J2405; Q9967

== ENCOUNTER 2024-03-02 15:35 | Emergency (ER) | payer SELFPAY ==
[2024-03-02] MEDS ORDERED: Ketorolac Tromethamine 30 MG (1 mL) VIAL ONE (16:01)
[2024-03-02] MEDS ORDERED: Methocarbamol 500 MG TAB ONE ×2 (16:03→17:14)
[2024-03-02 16:26] LABS: #Basophils 0.07 10x3/uL (0.0-0.2); %Basophils 0.9 % (0.0-1.0); %Eosinophils 2.6 % (0.0-10.0); %Lymphocytes 28.1 % (21.0-51.0); %Monocytes 5.7 % (0.0-10.0); %Neutrophils 62.3 % (42.0-75.0); Hemoglobin 16.1 g/dL (12.0-16.0); Mean Corpuscular HGB CONC 34.3 g/dL (32.0-36.0); Mean Corpuscular Hemoglobin 31.9 pg (27.0-31.0); Mean Corpuscular Volume 93.1 fL (78.0-98.0); Mean Platelet Volume 10.8 fL (7.4-10.4); Platelet Count 254 10x3/uL (130-400); RBC Distribution Width 13.6 % (11.5-14.5); Red Blood Cell (RBC) Count 5.05 mill/uL (4.20-5.40)
[2024-03-02 16:42] LABS: BHCG - Serum Negative (NEGATIVE); Pregs Control Background? CLEAR/WHITE (CLR/WHITE); Pregs Control Bar Appear? YES (CONTROL BAR)
[2024-03-02 16:47] LABS: ALT (SGPT) 43 U/L (8-55); AST (SGOT) 24 U/L (5-34); Albumin 3.5 g/dL (3.5-5.0); Alkaline Phosphatase 93 U/L (40-110); Anion Gap 16 mmol/L (10-20); BUN (Urea Nitrogen) 10 mg/dL (7.0-18.7); Bilirubin, Total 0.4 mg/dL (0.2-1.2); Calc. Creatinine Clearance 0 mL/min (70-130); Calcium 9.7 mg/dL (7.8-10.44); Carbon Dioxide 24 mmol/L (22-29); Chloride 102 mmol/L (98-107); Estimated GFR 95; Globulin 4.7 g/dL (2.4-3.5); Glucose 150 mg/dL (70-105); Lipase 31 U/L (8-78); Potassium 3.8 mmol/L (3.5-5.1); Protein, Total 8.2 g/dL (6.0-8.3); Sodium 138 mmol/L (136-145)
[2024-03-02 16:58] LABS: Bilirubin Negative (Negative); Blood, Urine Negative (Negative); CAUTI Indications for Culture Dysuria,urgency,freq; Clarity Clear (Clear); Glucose, Urine (Dipstick) Normal (Negative); Ketone, Urine Negative (Negative); Leukocyte Negative Leu/uL (Negative); Nitrite Negative (Negative); Protein, Urine (Dipstick) Negative (Neg-Trace); RBC/HPF 0-3 HPF (0-3); Specific Gravity, Urine 1.019 (1.002-1.036); Urobilinogen Normal mg/dL (Less than 2); WBC/HPF 0-3 HPF (0-3)
[2024-03-02 17:00] LABS: Bacteria/HPF Rare-Few HPF (None Seen)
[2024-03-02 17:02] LABS: Urine Culture Reflex No No
== END 2024-03-02 17:26 | disposition home or self-care (01) ==
LOC: ERS 15:35
DX: M79.10 Myalgia, unspecified site (principal); I10 Essential (primary) hypertension; E11.9 Type 2 diabetes mellitus without complications; E78.5 Hyperlipidemia, unspecified; F17.210 Nicotine dependence, cigarettes, uncomplicated; Z55.6 Problems related to health literacy; Z79.84 Long term (current) use of oral hypoglycemic drugs; W19.XXXA Unspecified fall, initial encounter
CPT/HCPCS: 36415; 74176; 80053; 81001; 83690; 84703; 85025; 96374; J1885